=== PATIENT | male | born 1980 ===

== ENCOUNTER 2024-03-12 16:24 | Outpatient (CLI) | payer OTHER, SELFPAY ==
[2024-03-15 03:33] LABS: Tissue Transglutaminase IgA Ab <1.0 U/mL; Tissue Transglutaminase IgG Ab <1.0 U/mL
[2024-03-16 03:47] LABS: Tissue Transglutaminase IgA Ab <1.0 U/mL; Tissue Transglutaminase IgG Ab <1.0 U/mL
== END 2024-03-12 16:25 | disposition home or self-care (01) ==
LOC: ANHLAB 16:26
PROVIDERS: PCP Family Medicine; Visit Provider Family Medicine
DX: R10.9 Unspecified abdominal pain (principal)
CPT/HCPCS: 36415; 86364